=== PATIENT | male | born 1995 | race Two or more races ===

== ENCOUNTER 2017-06-13 12:07 | Emergency (ER) | payer BC, OTHER ==
[~2017-06-13] VITALS: Ht 175.3 cm; Wt 111.1 kg
[2017-06-13 14:27] VITALS: BP 140/79
== END 2017-06-13 15:25 | disposition home or self-care (01) ==
LOC: ER 12:07
DX: S16.1XXA Strain of muscle, fascia and tendon at neck level, initial encounter (principal); S39.012A Strain of muscle, fascia and tendon of lower back, initial encounter; V49.49XA Driver injured in collision with other motor vehicles in traffic accident, initial encounter; Y93.89 Activity, other specified; Y99.8 Other external cause status; Y92.410 Unspecified street and highway as the place of occurrence of the external cause
CPT/HCPCS: 72100

== ENCOUNTER 2017-11-19 12:02 | Emergency (ER) | payer SELFPAY ==
[~2017-11-19] VITALS: Ht 175.3 cm; Wt 111.1 kg
[2017-11-19 13:01] VITALS: BP 110/63
[2017-11-19] MEDS ORDERED: KETOROLAC TROMETH 60MG/2ML VIAL IM ONE (13:45)
[2017-11-19] MEDS ORDERED: HYDROcodone-ACET 10/325MG TAB PO ONE (13:45)
== END 2017-11-19 14:33 | disposition home or self-care (01) ==
LOC: ER 12:05
DX: S52.122A Displaced fracture of head of left radius, initial encounter for closed fracture (principal); S52.132A Displaced fracture of neck of left radius, initial encounter for closed fracture; E66.01 Morbid (severe) obesity due to excess calories; Z68.36 Body mass index [BMI] 36.0-36.9, adult; W05.2XXA Fall from non-moving motorized mobility scooter, initial encounter; Y93.55 Activity, bike riding; Y99.8 Other external cause status; Y92.89 Other specified places as the place of occurrence of the external cause
CPT/HCPCS: 29125; 73080; 73090; 96372; 99284; J1885